=== PATIENT | female | born 1960 | race Caucasian/White ===

== ENCOUNTER 2016-08-23 14:49 | Emergency (ER) | payer BC ==
--- NOTE | ~2016-08-23 | CT16 ---
[facility] A Service of [facility] RADIOLOGY TEXT RESULTS PATIENT: STACY WHITFIELD LOCATION: [facility] : 58 UNIT #: [id number] AGE: [address]: Christine Greene MD SEX: F ORDER DR: [id number] [facility] [address] [place], [place] [address] [id number] E MR#: [id number] Acc #: [id number] NAME: STACY WHITFIELD : 1960 SEX: F STUDY DATE/TIME: 08/23/2016 14:08 UNIT: [facility] ROOM: STUDY DESCRIPTION: CT Angio Chest for PE Attending Physician: Christine Greene M.D. Ordering Physician: Christine Greene M.D. Primary Care Physician: [facility] MEDICAL IMAGING REPORT This report is preliminary unless electronic signature is present EXAM CT angio chest for PE. INDICATION Chest pain for the last 2 days intermittently with some shortness of air. Prior history of pulmonary embolism. Patient on blood thinners. TECHNIQUE Axial images were obtained through the chest following IV contrast administration. 3-D reformats were obtained. This CT exam was performed with one or more of the following radiation dose reduction techniques: automatic exposure control, adjustment of mA and/or kV according to patient size, and iterative reconstruction. COMPARISON STUDIES Comparison made with 06/07/2016. FINDINGS There is no pulmonary embolism or aortic dissection. There is no pleural or pericardial effusion. Small to moderate hiatal hernia is unchanged. There is a stable noncalcified right lower lobe nodule. There are multiple calcified granulomas in the lingula. The lungs otherwise are clear. Upper abdomen shows changes of cholecystectomy. IMPRESSION 1. No pulmonary embolism or aortic dissection. 2. No active disease in the chest. Dictated by... Jim French Jr., M.D. [facility] A Service [facility] RADIOLOGY TEXT RESULTS PATIENT: STACY WHITFIELD LOCATION: [facility] : 58 UNIT #: [id number] AGE: [address]: Christine Greene MD SEX: F ORDER DR: THIS IS AN ELECTRONICALLY VERIFIED REPORT Jim French Jr., M.D. at 08/23/2016 3:35 PM KAVIN/almas TD: 08/23/2016 14:52 JOB #: [id number] MEDICAL IMAGING REPORT Page 1 of 1 COPY
--- NOTE | ~2016-08-23 | EKG ---
PATIENT: STACY WHITFIELD UNIT #: [id number] Ventricular Rate: 63 BPM Atrial Rate: 63 BPM P-R Interval: 180 ms QRS Duration: 84 ms Q-T Interval: 402 ms QTC Calculation(Bezet): 411 ms P [place]: 35 degrees Calculated R [place]: 13 degrees Calculated T [place]: 6 degrees Diagnosis Line: Atrial-paced rhythm Diagnosis Line: Inferior infarct , age undetermined Diagnosis Line: Abnormal ECG Diagnosis Line: When compared with ECG of 08-JUN-2016 06:25, Diagnosis Line: No significant change was found Diagnosis Line: Confirmed by ANGELINE PAULINO MD ([id number]) on Diagnosis Line: 08/23/2016 4:40:28 PM INTERPRETING MD: LORA MURO
--- NOTE | ~2016-08-23 | CR72 ---
[facility] A Service of [facility] RADIOLOGY TEXT RESULTS PATIENT: STACY WHITFIELD LOCATION: [facility] : 58 UNIT #: [id number] AGE: [address]: Christine Greene MD SEX: F ORDER DR: [id number] [facility] [address] [place], [place] [address] [id number] P MR#: [id number] Acc #: [id number] NAME: STACY WHITFIELD : 1960 SEX: F STUDY DATE/TIME: 08/23/2016 UNIT: [facility] ROOM: STUDY DESCRIPTION: CR Chest Single View Portable Attending Physician: Christine Greene M.D. Ordering Physician: Christine Greene M.D. Primary Care Physician: Primary Care Physician No MEDICAL IMAGING REPORT This report is preliminary unless electronic signature is present EXAM Chest portable 08/23/2016 12:48 hours HISTORY 56-year-old woman with 1-week history of left-sided chest pain and shortness of air. Prior history of pulmonary emboli. COMPARISON 06/07/2016 FINDINGS Portable upright chest demonstrates normal heart size. Mediastinal and hilar contours are normal. There is a stable left subclavian dual lead pacer. The lungs are clear and there are no effusions. IMPRESSION Stable left subclavian dual lead cardiac pacer. Lungs are clear and there are no effusions. Dictated by... Jessica Jara M.D. THIS IS AN ELECTRONICALLY VERIFIED REPORT Jessica Jara M.D. at 08/23/2016 2:32 PM COLINM/dary TD: 08/23/2016 13:28 JOB #: [id number] MEDICAL IMAGING REPORT Page 1 of 1 COPY
[2016-08-23 12:53] LABS: BASOPHIL% 0.3 % (0-2.5); DIFF IND NO; EOSINOPHIL# 0.1 X10e3 (0-0.7); EOSINOPHIL% 1.7 % (0.0-7.0); HEMATOCRIT 39.3 % (35.0-45.0); LYMPHOCYTE# 2.7 X10e3 (1.0-3.5); LYMPHOCYTE% 33.8 % (17.0-45.0); MEAN CELL VOLUME 95.8 FL (83-96); MEAN CORPUSCULAR HEMOGLOBIN 31.6 PG (28-34); MEAN PLATELET VOLUME 10.2 FL (6.5-11.5); MONOCYTE# 0.8 X10e3 (0-1.0); MONOCYTE% 9.3 % (3.0-12.0); NEUTROPHIL# 4.5 X10e3 (1.5-7.1); NEUTROPHIL% 54.9 % (40-75); PLATELET COUNT 249 X10e3 (140-420); RED CELL DISTRIBUTION WIDTH 13.2 % (11.0-15.5); WHITE BLOOD COUNT 8.1 X10e3 (4.0-10.5)
[2016-08-23 13:00] LABS: POC - CKMB 4.1 ng/mL (0.0-7.9); POC - TROPONIN <0.05 ng/mL (<=0.05)
[2016-08-23 13:06] LABS: PARTIAL THROMBOPLASTIN TIME 30.8 SECONDS (23.5-31.3); PROTHROMBIN TIME (PATIENT) 10.8 SECONDS (9.6-11.5)
[2016-08-23 13:20] LABS: ALBUMIN SERUM 4.3 g/dL (3.5-5.0); ALKALINE PHOSPHATASE 52 U/L (32-92); ALT (SGPT) 30 U/L (10-40); AST (SGOT) 26 U/L (10-42); BILIRUBIN, DIRECT <0.1 mg/dL (0.0-0.2); BILIRUBIN,INDIRECT 0.4 mg/dL (0.0-0.9); BILIRUBIN,TOTAL 0.5 mg/dL (0.2-2.0); BLOOD UREA NITROGEN 25 mg/dL (9-23); BUN/CREATININE RATIO 31.25; CALCIUM SERUM 9.5 mg/dL (8.4-10.2); CARBON DIOXIDE 28 mmol/L (22-31); CHLORIDE 103 mmol/L (100-111); CREATININE SERUM 0.8 mg/dL (0.6-1.4); GLOM FILT RATE Estimated 81.9 mL/min (>60); GLUCOSE FASTING 86 mg/dL (70-110); POTASSIUM 3.7 mmol/L (3.5-5.1); PROTEIN TOTAL SERUM 7.5 g/dL (6.0-8.3); SODIUM 138 mmol/L (135-145)
[~2016-08-23 14:49] MED LIST: ACETAMINOPHEN650 M1 PO; AMLODIPINE BESYL5 MG PO; AMLODIPINE PO; ASPIRIN81 MG PO; BENTYL20 MG PO; CIPRO PO; ELIQUIS5 MG PO; HYDROCHLOROTHIA25 MG PO; LINZESS145 MCG PO; LISINOPRIL20 MG PO; LOTRISONE CREAM45 GM TOP; PRINIVIL40 MG PO; PROTONIX PO; PYRIDIUM PO
[2016-08-23 15:48] LABS: POC - CKMB 1.5 ng/mL (0.0-7.9); POC - TROPONIN <0.05 ng/mL (<=0.05)
== END 2016-08-23 17:35 | disposition home or self-care (01) ==
LOC: CED 14:49
PROVIDERS: Emergency Medicine
DX: R07.9 Chest pain, unspecified (principal); I10 Essential (primary) hypertension; Z90.49 Acquired absence of other specified parts of digestive tract; Z90.710 Acquired absence of both cervix and uterus
CPT/HCPCS: 36415; 71010; 71275; 80048; 80076; 82553; 83880; 84484; 85025; 85610; 85730; 93005; 99284; Q9967